=== PATIENT | female | born 1950 | race Caucasian/White ===

== ENCOUNTER 2018-02-16 15:15 | Outpatient (RCR) | payer OTHER | END 2018-02-28 | disposition home or self-care (01) | LOC: PTY 15:15 | DX: M25.562 Pain in left knee (principal); G89.29 Other chronic pain ==

== ENCOUNTER 2018-03-03 14:09 | Outpatient (RCR) | payer OTHER | END 2018-03-30 | disposition home or self-care (01) | LOC: PTY 14:09 | DX: M25.562 Pain in left knee (principal); G89.29 Other chronic pain ==